=== PATIENT | male | born 1985 | race Caucasian/White ===

== ENCOUNTER 2018-04-05 01:55 | Emergency (ER) | payer MEDICAID ==
[~2018-04-05] VITALS: Ht 177.8 cm; Wt 64.0 kg
--- NOTE | 2018-04-05 02:15 | NUR ---
PT AWARE UA IS NEEDED. PT STATES HE NEEDS FOOD AND WATER BEFORE ATTEMPING UA. PT GIVEN WATER AT THIS TIME.
--- NOTE | 2018-04-05 02:43 | NUR ---
GASPER LIGHT SPOKE WITH PT AND HAS DECIDED TO DECERTIFY THE LEGAL HOLD. PT GIVEN BELONGINGS. POC DISCUSSED.
[2018-04-05 02:44] VITALS: BP 119/74
== END 2018-04-05 02:45 | disposition home or self-care (01) ==
LOC: ED 02:27
DX: F15.10 Other stimulant abuse, uncomplicated (principal); R45.851 Suicidal ideations
CPT/HCPCS: 99283